=== PATIENT | female | born 1935 | race Caucasian/White ===

== ENCOUNTER 2022-11-14 14:00 | Outpatient (REF) | payer MEDICARE, SELFPAY ==
--- NOTE | ~2022-11-14 | XR_ITS ---
EXAMINATION: XR KNEE, RIGHT CLINICAL INFORMATION: Right knee pain. COMPARISON: 09/29/2022 and 11/10/2021. TECHNIQUE: AP and lateral views of the right knee. FINDINGS: There is no evidence of acute fracture or dislocation of the right knee. No right knee effusion is seen. There is some marginal spurring seen about the medial joint space compartment without significant narrowing of the joint space identified. There appears to be some mild narrowing of the patellofemoral joint with some superior spurring identified. Prominent vascular calcifications present. XR/XR knee RT 2V IMPRESSION: Mild degenerative change of the patellofemoral joint and medial joint space compartment of the right knee. No acute fracture, dislocation, or effusion identified.
== END 2022-11-14 14:01 | disposition home or self-care (01) ==
LOC: HO.HOSX 14:00
PROVIDERS: Visit Provider Orthopaedic Surgery
DX: M17.11 Unilateral primary osteoarthritis, right knee (principal); M25.562 Pain in left knee
CPT/HCPCS: 73560; 99212

== ENCOUNTER 2023-04-24 10:54 | Outpatient (REF) | payer MEDICARE, SELFPAY ==
--- NOTE | ~2023-04-24 | XR_ITS ---
EXAMINATION: XR PELVIS AP XR LUMBAR SPINE XR KNEE, LEFT CLINICAL INFORMATION: Pain. COMPARISON: September 29, [address] abdomen of May 28, 2019. TECHNIQUE: AP pelvis, 3 view lumbar spine, AP and lateral views of the left knee. FINDINGS: LUMBAR SPINE: There is diffuse osteopenia present. There is a grade 1 spondylolisthesis L4-L5 with bilateral facet arthropathy L4-S1. There is question of spondylolysis with L5 pars defects. Since study of May 28, 2019 there have been superior and inferior endplate fractures of L3 with approximately 40% loss of height centrally. There appears to be a stable inferior endplate fracture of L2. There has been progression in compression fracture of L1 which on prior CT scan had minimal loss of height with superior endplate compression fracture. There is now approximately 50% loss of height anteriorly. There is a stable compression fracture of T12 as well as degenerative spurring and fusion within the lower lumbar spine. LEFT KNEE: Patient is status post left total knee arthroplasty. Prosthetic components appear in good position without evidence of hardware failure. Osteopenia is present. No significant effusion is appreciated. PELVIS: There is no evidence of acute fracture or diastasis of the pelvis. Hip joints appear maintained. Calcification about the greater trochanter is seen bilaterally. There is some sclerosis involving the sacroiliac joints with spurring. Prominent vascular calcifications are present. XR/XR lumbar spine 2-3V IMPRESSION: Diffuse osteopenia. Status post left knee arthroplasty without significant abnormality appreciated. Grade 1 spondylolisthesis L4-L5 with bilateral facet arthropathy L4-S1. Fractures of the L1 and L3 vertebral bodies since previous CT scan of May 28, 2019 of uncertain chronicity. Bilateral calcific trochanteritis of the hips.
--- NOTE | ~2023-04-24 | XR_ITS ---
EXAMINATION: XR PELVIS AP XR LUMBAR SPINE XR KNEE, LEFT CLINICAL INFORMATION: Pain. COMPARISON: September 29, [address] abdomen of May 28, 2019. TECHNIQUE: AP pelvis, 3 view lumbar spine, AP and lateral views of the left knee. FINDINGS: LUMBAR SPINE: There is diffuse osteopenia present. There is a grade 1 spondylolisthesis L4-L5 with bilateral facet arthropathy L4-S1. There is question of spondylolysis with L5 pars defects. Since study of May 28, 2019 there have been superior and inferior endplate fractures of L3 with approximately 40% loss of height centrally. There appears to be a stable inferior endplate fracture of L2. There has been progression in compression fracture of L1 which on prior CT scan had minimal loss of height with superior endplate compression fracture. There is now approximately 50% loss of height anteriorly. There is a stable compression fracture of T12 as well as degenerative spurring and fusion within the lower lumbar spine. LEFT KNEE: Patient is status post left total knee arthroplasty. Prosthetic components appear in good position without evidence of hardware failure. Osteopenia is present. No significant effusion is appreciated. PELVIS: There is no evidence of acute fracture or diastasis of the pelvis. Hip joints appear maintained. Calcification about the greater trochanter is seen bilaterally. There is some sclerosis involving the sacroiliac joints with spurring. Prominent vascular calcifications are present. XR/XR pelvis 1-2V IMPRESSION: Diffuse osteopenia. Status post left knee arthroplasty without significant abnormality appreciated. Grade 1 spondylolisthesis L4-L5 with bilateral facet arthropathy L4-S1. Fractures of the L1 and L3 vertebral bodies since previous CT scan of May 28, 2019 of uncertain chronicity. Bilateral calcific trochanteritis of the hips.
--- NOTE | ~2023-04-24 | XR_ITS ---
EXAMINATION: XR PELVIS AP XR LUMBAR SPINE XR KNEE, LEFT CLINICAL INFORMATION: Pain. COMPARISON: September 29, [address] abdomen of May 28, 2019. TECHNIQUE: AP pelvis, 3 view lumbar spine, AP and lateral views of the left knee. FINDINGS: LUMBAR SPINE: There is diffuse osteopenia present. There is a grade 1 spondylolisthesis L4-L5 with bilateral facet arthropathy L4-S1. There is question of spondylolysis with L5 pars defects. Since study of May 28, 2019 there have been superior and inferior endplate fractures of L3 with approximately 40% loss of height centrally. There appears to be a stable inferior endplate fracture of L2. There has been progression in compression fracture of L1 which on prior CT scan had minimal loss of height with superior endplate compression fracture. There is now approximately 50% loss of height anteriorly. There is a stable compression fracture of T12 as well as degenerative spurring and fusion within the lower lumbar spine. LEFT KNEE: Patient is status post left total knee arthroplasty. Prosthetic components appear in good position without evidence of hardware failure. Osteopenia is present. No significant effusion is appreciated. PELVIS: There is no evidence of acute fracture or diastasis of the pelvis. Hip joints appear maintained. Calcification about the greater trochanter is seen bilaterally. There is some sclerosis involving the sacroiliac joints with spurring. Prominent vascular calcifications are present. XR/XR knee LT 3V IMPRESSION: Diffuse osteopenia. Status post left knee arthroplasty without significant abnormality appreciated. Grade 1 spondylolisthesis L4-L5 with bilateral facet arthropathy L4-S1. Fractures of the L1 and L3 vertebral bodies since previous CT scan of May 28, 2019 of uncertain chronicity. Bilateral calcific trochanteritis of the hips.
== END 2023-04-24 10:55 | disposition home or self-care (01) ==
LOC: HO.HOSX 10:54
PROVIDERS: PCP Internal Medicine; Visit Provider Orthopaedic Surgery
DX: M25.562 Pain in left knee (principal); M54.50 Low back pain, unspecified; M25.551 Pain in right hip; M25.552 Pain in left hip
CPT/HCPCS: 72100; 72170; 73562; 99212

== ENCOUNTER 2023-04-24 10:54 | Outpatient (AMB) | payer MEDICARE, SELFPAY ==
--- NOTE | 2023-04-24 11:17 | MHC.OFFVIS ---
Intake Vital Signs 04/24/23 11:19 Height 5 ft 1 in Weight 126 lb BMI 23.8 Intake Visit Reasons: discuss RT TKA Intake Note: Juhi is an 87 year old female who presents today to re-establish care with Dr. Hernandez. The patient is most concerned about progressively worsening low back pain which radiates into both of her hips and legs. The patient states that she has fallen on several occasions over the last few months. The most recent fall was when she tripped over her own foot while in her bathroom. Since that time her back pain has gotten worse. She has tried Tylenol which gives her minimal relief. She also reports intermittent weakness in her legs. She has done physical therapy exercises which aggravated her pain. Allergies metoclopramide [From Reglan] Allergy (Verified 11/14/22 14:13) Hallucinations [facility] Medical History Pacemaker Surgical History Heart valve replaced (06/14/22) History of left knee replacement (10/03/21) Physical Exam Vital Signs: BMI result Body Mass Index 23.8 Const Other: Well-nourished well-developed very friendly female awake alert and oriented x3 in no acute distress Back/Spine/Pelvis Other: Low back examination shows midline and bilateral paraspinal muscle tenderness, pain with range of motion, no overlying skin lesions Extrem Other: Bilateral hip examination shows minimal discomfort with range of motion, mild tenderness over her bilateral bursae Right knee examination shows a minimal effusion, palpable crepitus with range of motion, pain with range of motion, no instability Results Reviewed Results Reviewed: X-rays of the patient's lumbar spine taken today show possible acute fractures of her L1 and L3 vertebral bodies X-rays of the patient's right knee shows joint space narrowing, subchondral sclerosis most significant in the patellofemoral joint, no acute bony abnormalities X-rays of the patient's bilateral hips taken today show mild diffuse joint space narrowing, no acute bony abnormalities Assessment & Plan Assessment & Plan (1) Left knee pain: Code(s): M25.562 - Pain in left knee (2) Low back pain: Code(s): M54.50 - Low back pain, unspecified Plan Ms. Samayoa presents with progressively worsening low back pain possibly due to acute compression fractures of L1 and L3. Patient is not able to get an MRI because she has a pacemaker. Thus, I will send her for a CT scan of her lumbar spine for further evaluation. I will contact her by phone once the scan results are available. She will contact me prior to that time should her symptoms worsen in any way. The patient also has intermittent right knee pain due to degenerative joint disease. At this point her knee pain is tolerable to her. Her bilateral hip discomfort is most likely due to her lumbar spine pathology. Feel free to call me at any time should questions regarding her orthopedic management arise. I spent 22 minutes in reviewing the patient's records and imaging studies, seeing the patient and documenting in the medical record. Orders: Orders XR lumbar spine 2-3V Today M54.50 - Low back pain, unspecified XR knee LT 3V Today M25.562 - Pain in left knee XR pelvis 1-2V Today M25.551 - Pain in right hip, M25.552 - Pain in left hip CT lumbar spine wo IV con Today M54.50 - Low back pain, unspecified Coding Level of Care Code Est Pt Level 2 (61850) Diagnoses Left knee pain M25.562 Low back pain M54.50
[2023-04-24 11:19] VITALS: BMI 23.8
== END 2023-04-24 12:19 | disposition home or self-care (01) ==
PROVIDERS: PCP Internal Medicine; Visit Provider Orthopaedic Surgery
DX: M25.562 Pain in left knee (principal); M54.50 Low back pain, unspecified
CPT/HCPCS: 99212

== ENCOUNTER 2023-05-07 10:00 | Outpatient (RCR) | payer MEDICARE, SELFPAY | END 2023-06-01 07:57 | disposition home or self-care (01) | LOC: HO.PT 10:00 | PROVIDERS: PCP Internal Medicine; Visit Provider Internal Medicine | DX: M54.9 Dorsalgia, unspecified (principal) | CPT/HCPCS: 97110; 97112; 97140; 97162; 97530 ==

== ENCOUNTER 2024-10-15 07:33 | Outpatient (REF) | payer MEDICARE, SELFPAY ==
--- NOTE | ~2024-10-15 | XR_ITS ---
EXAMINATION: XR KNEE 3 VIEWS LEFT HISTORY: left knee pain COMPARISON: Comparison is made with the prior examination dated 04/24/2023. FINDINGS: AP, lateral, and sunrise patellar views of the left knee are submitted. The patient is again noted to be status post left total knee arthroplasty. The orthopedic elements are in anatomic alignment. There is no radiographic evidence of loosening. There is no fracture or dislocation. There is no joint effusion. The soft tissues are unremarkable. XR/XR knee LT 3V IMPRESSION: Status post left total knee arthroplasty. Electronically signed by: Alejandro Alejandro MD 10/15/2024 03:31 PM EDT
--- OUTSIDE RECORDS SUMMARY | 2024-10-15 07:35 | XMS_ITS ---
Author Organization [facility] Address [address] [place] [address] Care Team Providers Care Manager Product Management Name Role Phone Mark FRENCH, Oral Primary Care Provider Tequila Tran Unavailable [phone] Allergies Allergen (clinical drug ingredient) Drug/Non Drug Allergy documented on EMR Reaction Allergy Type Onset Date Status metoclopramide Metoclopramide HCl Unknown Drug Allergy Active REASON FOR VISIT At Risk Footcare, Painful Nail(s) aggravated by shoes and causing difficulty standing/walking. Medications Medication SIG (Take, Route, Frequency, Duration) Notes Start Date End Date Status hydroCHLOROthiazide Not-Taking baby asprin Not-Taki ng Losartan Potassium 25 MG 1 tablet Orally Once a day for 30 day(s) Not-Taking Vitamin D3 - as directed Activ e Furosemide 20 MG 1 tablet Orally Once a day for 30 day(s) Not-Taking Iron Active Simvastatin 10 MG 1 tablet in the evening Orally Once a day for 30 day(s) Active Vitamin B-12 5000 MCG as directed Orally Active Losartan Potassium 100 MG 1 tablet Orall y Once a day for 30 days Active NexIUM 40 MG 1 capsule Orally Once a day for 30 day(s) Active hydroCHLOROthiazide 12.5 MG 1 tablet in the morning Orally Once a day Active Airborne - as directed Orally Active Calcium 600 MG 1 tablet with meals Orally Twice a day for 30 day(s) Active Social History Tobacco Use: Social History Observation Description Date Details (start date - stop date) Never Smoker NA - NA Alcohol Screen Question Answer Notes Did you have a drink containing alcohol in the p ast year? No Points 0 Interpretation Negative Tobacco use other than smoking: Question Answer Notes Are you an other tobacco user? No Tobacco Control (Standard) Question Answer Notes Tobacco use: Nonsmoker Problems Problem Type SNOMED Code ICD Code Onset Dates Problem Status W/U Status Risk Notes Problem Bilateral atherosclerosis of arteries of lower limbs (disorder) ([id number] ) Atherosclerosis of [place]am[place] artery of both lower extremities, with unspecified presence of clinical manifestation (I70.203) Active confirmed Q7(A), Q8(2B), Q9(1B,2 C) Vital Signs Height 5 ft 1 in in 05/27/2024 Weight 127 lbs 05/27/2024 BMI 23.99 kg/m2 05/27/2024 Blood pressure systolic 119 mm Hg 05/27/19 25 Blood pressure diastolic 52 mm Hg 025 Procedures Procedure Date Ordered Date Performed Result Body Sit e 21148-LGWSKUC NAIL, 6 OR MORE 05/27/2024 N/A 46588-UMVJ SKIN LESIONS, OVER 4 05/27/2024 N/A Encounters Encounter Location Date Provider Diagnosis [facility] [address] [address] 05/27/2024 Tequila Shin Atherosclerosis of [place]am[place] artery of both lower extremities, with unspecified presence of clinical manifestation I70.203 ; Tinea unguium B35.1 ; Pain in right toe(s) M79.674 and Pain in left toe(s) M79.675 Assessments Encounter Date Diagnosis (ICD Code) Assessment Notes Treatment Notes Treatment Clinical Notes Section Notes 05/27/2024 Atherosclerosis of [place]am[place] artery of both lower extremities, with unspecified presence of clinical manifestation (ICD-10 - I70.203) Q7(A), Q8(2B), Q9(1B,2C) 05/27/2024 Tinea unguium (ICD-10 - B35.1) 05/27/2024 Pain in right toe(s) (ICD-10 - M79.674) 05/27/2024 Pain in left toe(s) (ICD-10 - M79.675) Plan Of Treatment Pending Test Test Name Order Date 82752-BUSEVRH NAIL, 6 OR MORE 05/27/2024 44662-TXRF SKIN LESIONS, OVER 4 05/27/19 25 Next Appt Details Follow Up: 3 Months, Reason: Procedure Notes * Category Sub-Category Detail Notes Debride Nail 6-10 Nail debridement Due to the cl inical pathology outlined in the exam findings, performance of this nail treatment is medically necessary as its management by an unskilled/untrained nonprofessional would put this patients foot and overall health at risk. Therefore, debridement to affected nail(s), as described in exam ( TA, T1, T2, T3, T4, T5, T6, T7, T8, T9, ), was performed exclusively by the physician of record to reduce/remove overall nail length, girth, thickness, subungual debris, and necrotic tissue, by manual and/or electrical means through the use of a nail nipper and/or dremel-type watch parts grinder, to a more viable healthy nail plate or bed tissue 6-10 nails in total. Silver nitrate was used for any petechial bleeding as necessary. Definitive antifungal treatment options, both pharmaceutical and surgical, have been reviewed and discussed with the patient. The patient solely prefers the use of intermittent/as needed professional debridement services for their nail condition and understands the need for additional periodic treatments to maintain effectiveness in symptomatic relief - 38774 Keratoma Treatment Parring or Cutting o f Benign Hyperkeratotic Lesion(s) (-56) 2-4 Lesions - Due to the at risk nature of the patients medical condition as documented in the exam findings, performance of this keratoderma treatment is medically necessary as its management by an unskilled/untrained nonprofessional would put this patients foot and overall health at risk. Therefore, the benign hyperkeratotic lesions, (6 ) in total, locations as stated and described in the exam ( Plantar, Heel(s), B/L , SUB MTH (s), 1, B/L , Midfoot, B/L), were pared, and/or cut utilizing a sterile 15 blade, tissue nippers, and/or power dremel instrumentation by the physician of record - 05788, Q8 Progress Notes * Juhi SAMAYOA MDOB:1935 (88 yo F)Acc No.[id number]:05/27/2024 Progress Note Patient:?NAZ Juhi Bloom Provider:?Tequila Shin DPM :1935???Age:88 Y???Sex:Female D ate:05/27/2024 Address:[address], [place], [place] Pcp:Oral Flores MD Subjective: * Chief Complaints: * ???At Risk FootcarePainful N ail(s) aggravated by shoes and causing difficulty standing/walking. * HPI: ???At Risk footcare:?Pt States Last PCP Visit:?Date?05/12/2024 * ROS:?General/Constitutional:?Nausea?denies.?Vomiting?denies.?Hunger Thirst?denies.?Loss appetite?denies.?Chills?denies.?Fatigue?denies.?Fever?denies.?Night Sweats?denies.?Unexplained weight loss?denies.?Unexplained weight gain?denies.?HEENTM:?Dentures?denies.?Dizziness?denies.?Glasses/contacts?admits.?Retinopathy?de nies.?Blurred/double vision?denies.?TMJ?denies.?Discharge/drainage?denies.?Implants?denies.?Sore throat?denies.?Dental implants?denies.?Hard of hearing ?denies.?Difficulty chewing/swallowing/speaking?denies.?Nose bleeds?denies.?Sore mouth?denies.?Respiratory:?On Oxygen?denies.?Pneumonia/pleurisy?denies.?Bronchitis?denies.?Emphysema?denies.?C oughing?denies.?Cough blood?denies.?Shortness of breath?denies.?Wheezing?denies.?Cardiovascular:?Pacemaker?denies.?MVP?denies.?WPW?denies.?CHF?denies.?Heart attack?denies.?Septal defect?denies.?Rapid beat?denies.?Chest pain ?denies.?Atrial Fib.?denies.?Murmur/Palpitations?admits.?Gastrointestinal:?Hemorrhoids?denies.?Stomach/Abdominal pain?denies.?Dark blood stool?denies.?Irritable bowel ?denies.?Constipation?denies.?Diarrhea?denies.?Hematology:?Swelling?admits.?Clots?denies.?Varicose Veins?admits.?Bruising?admits.?Bleeding problem?denies.?Genitourinary:?Blood urine?denies.?Frequent/Painfu/urination/bladder control?denies.?Kidney stones?denies.?Infection (UTI)?denies.?Nephropathy?admits.?sex trans dis (STD)?denies.?Prostate?denies.?Musculoskeletal:?Hammertoes?denies.?Bunions?denies.?Back Pain?denies.?Muscle Cramps/ Resting?admits.?Muscle cramps / walking?admits.?Generalized aches and pains?denies.?Weakness?denies.?Integ.:?[place]?denies.?Scars?denies.?Corns/calluses?denies.?Ingrown nails?denies.?Painful nails?denies.?Open Sores?denies.?Rashes?denies.?Neurologic:?Difficulty sleeping?denies.?Brain disorder?denies.?Numbness?admits.?Balance trouble?denies.?Confusion?denies.?Fainting/blackouts?denies.?Tingling?denies.?Tr emors?denies.? * Medical History:? * Surgical History:?biopsy on face spot 04/19/20TVARS 03/02/21left knee replacement 10/03/21pacemaker 06/15/22 * Hospitalization/Major Diagno stic Procedure:?[facility], Aortic valve [facility]- fell 02/2023 * Family History:?Mother: dece ased, diabetes, heart attack, high blood pressure, cancer, foot problems, diagnosed with Diabetic - NIDDM.?Father: , heart attack, diagnosed with Family history of arthritis.?Siblings: diabetes, stroke, heart attack.?Spouse: .? * Social History:?Tobacco Use:?Tobacco use other than smoking?Are you an other tobacco user??No ?Tobacco Control (Standard)?Tobacco use:?Nonsmoker ???Drugs/Alcohol:?Drugs?Have you used drugs other than those for medical reasons in the past 12 months??No ?Alcohol Screen?Did you have a drink containing alcohol in the past year??No ?Points?0 ?Interpretation?Negative ???Miscellaneous:?Caffeine: yes, frequency:. ?Children: yes, 3. ?Exercise: yes, exercise. ?Marital status: . ?Occupation: Retired. * Medications:?TakingAirborne - Tablet Chewable as directed Orally Calcium 600 MG Tablet 1 tablet with meals Orally Twice a day hydroCHLOROthiazide 12.5 MG Tablet 1 tablet in the morning Orally Once a day Iron Losartan Potassium 100 MG Tablet 1 tablet Orally Once a day NexIUM 40 MG Capsule Delayed Release 1 capsule Orally Once a day Simvastatin 10 MG Tablet 1 tablet in the evening Orally Once a day Vitamin B-12 5000 MCG Lozenge as directed Orally Vitamin D3 - Liquid as directed Taking Airborne - Tablet Chewable as directed Orally Taking Calcium 600 MG Tablet 1 tablet with meals Orally Twice a day Taking hydroCHLOROthiazide 12.5 MG Tablet 1 tablet in the morning Orally Once a day Taking Iron Taking Losartan Potassium 100 MG Tablet 1 tablet Orally Once a day Taking NexIUM 40 MG Capsule Delayed Release 1 capsule Orally Once a day Taking Simvastatin 10 MG Tablet 1 tablet in the evening Orally Once a day Taking Vitamin B-12 5000 MCG Lozenge as directed Orally Taking Vitamin D3 - Liquid as directed Not-Taking/PRNFurosemide 20 MG Tablet 1 tablet Orally Once a day hydroCHLOROthiazide baby asprin Losartan Potassium 25 MG Tablet 1 tablet Orally Once a day Medication List reviewed and reconciled with the patientNot-Taking/PRN Furosemide 20 MG Tablet 1 tablet Orally Once a day Not-Taking/PRN hydroCHLOROthiazide Not-Taking/PRN baby asprin Not-Taking/PRN Losartan Potassium 25 MG Tablet 1 tablet Orally Once a day Medication List reviewed and reconciled with the patient * Allergies:?Metoclopramide HC lyes[Allergies Verified] Objective: * Vitals:?Ht: 5 ft 1 in, Wt: 1 27, BMI: 23.99, Shoe size: 7.5W, BP: 119/52 mm Hg, Wt-k.61 kg. * Examination: ???Vascular: ?DP PULSES (B):? 0/4, B/L.?PT PULSES (B):? 0/4, B/L.?CAPILLARY FILL TIME:? delayed, all digits, B/L.?TROPHIC CONDITION-TEXTURE/ELASTICITY/TURGOR/HAIR GROWTH (B):? decreased, fragile, thin, shiny skin, with sparse to absent hair growth, B/L.?TEMPERTURE GRADIENT (C):? decreased, cool to cool, proximal to distal, B/L.?PIGMENTATION:?pale, B/L.?EDEMA (C):?absent, B/L.?CLAUDICATION (C):?denies, B/L.?REST PAIN:?denies, B/L.?PARESTHESIA (C):?absent, B/L.?BURNING (C):?absent, B/L.?Nails: ?NAILS are:?Elongated, overgrown, dystrophic, lytic, greater than 3mm thick, discolored and friable with crumbly malodorous subungual debris, with pain on palpation, TA, T1, T2, T3, T4, T5, T6, T7, T8, T9.?Dermatologic: ?SKIN FINDINGS:?Skin exam reveals Keratotic lesion(s) located at?Plantar, Heel(s), B/L , SUB MTH (s), 1, B/L , Midfoot, B/L.?Orthopedic: ?MUSCLE STRENGTH:?5/5 all groups in a symmetrical fashion, B/L.?Neurological: ?SENSORY:?Neurological exam reveals intact sensorium, pain sensation normal, vibration sensation intact, pinprick sensation is normal in the lower extremities, Pt denies, anesthesia, burning, paresthesia, tingling, B/L.?General Examination: ?GENERAL APPEARANCE:?Reveals a pleasant, alert, well nourished, well- developed, well hydrated individual, who demonstrates proper attention to hygiene/body habitus, and is in no acute distress, Pt serves as own historian for office visit today.?ORIENTED:?person, place, and time.? Assessment: * Assessment: 1.?Atherosclerosis of [place] artery of both lower extremities, with unspecified presence of clinical manifestation - I70.203 (Primary)???Notes :Q7(A), Q8(2B), Q9(1B,2C)???2.?Tinea unguium - B35.1???3.?Pain in right toe(s) - M79.674???4.?Pain in left toe(s) - M79.675??? Plan: * Treatment: 2.?Tinea unguium?Procedure: [id number]-[id number] NAIL, 6 OR MORE * Procedures:?Debride Nail 6-10:?Nail debridement?Due to the clinical pathology outlined in the exam findings, performance of this nail treatment is medically necessary as its management by an unskilled/untrained nonprofessional would put this patients foot and overall health at risk. Therefore, debridement to affected nail(s), as described in exam ( TA, T1, T2, T3, T4, T5, T6, T7, T8, T9, ), was performed exclusively by the physician of record to reduce/remove overall nail length, girth, thickness, subungual debris, and necrotic tissue, by manual and/or electrical means through the use of a nail nipper and/or dremel-type watch parts grinder, to a more viable healthy nail plate or bed tissue 6- 10 nails in total. Silver nitrate was used for any petechial bleeding as necessary. Definitive antifungal treatment options, both pharmaceutical and surgical, have been reviewed and discussed with the patient. The patient solely prefers the use of intermittent/as needed professional debridement services for their nail condition and understands the need for additional periodic treatments to maintain effectiveness in symptomatic relief - 39689.?Keratoma Treatment:?Parring or Cutting of Benign Hyperkeratotic Lesion(s)?(-56) 2-4 Lesions - Due to the at risk nature of the patients medical condition as documented in the exam findings, performance of this keratoderma treatment is medically necessary as its management by an unskilled/untrained nonprofessional would put this patients foot and overall health at risk. Therefore, the benign hyperkeratotic lesions, (6 ) in total, locations as stated and described in the exam ( ?Plantar, Heel(s), B/L , SUB MTH (s), 1, B/L , Midfoot, B/L), were pared, and/or cut utilizing a sterile 15 blade, tissue nippers, and/or power dremel instrumentation by the physician of record - 12239, Q8.? * Procedure Codes:?08032 DEBRI DE NAIL, 6 OR MORE, Modifiers: XS 69695 TRIM SKIN LESIONS, OVER 4, Modifiers: XS , Q8 * Follow Up:?3 Months * Images: * Sign off status: Completed true * Provider:?Tequila Shin DPM Date:?0 05/27/2024 Generated for Nicanor otto/Vianey/William on:?10/15/2024 07:35 AM EDT History and Physical Notes * HPI (History of Present Illness) Category Sub-Category Detail Notes Category Not es At Risk footcare Pt States Last PCP Visit: Date: 4 Examination Category Sub-Category Detail Notes Category Not es Neurological SENSORY: Neurological exa m reveals intact sensorium, pain sensation normal, vibration sensation intact, pinprick sensation is normal in the lower extremities, Pt denies, anesthesia, burning, paresthesia, tingling, B/L Dermatologic SKIN FINDINGS: Skin exam reveal s Keratotic lesion(s) located at Plantar, Heel(s), B/L , SUB MTH (s), 1, B/L , Midfoot, B/L Orthopedic MUSCLE STRENGTH: 5/5 all groups in a symmetrical fashion, B/L General Examination GENERAL APPEARANCE: Reveals a pleasant, alert, well nourished, well-developed, well hydrated individual, who demonstrates proper attention to hygiene/body habitus, and is in no acute distress, Pt serves as own historian for office visit today ORIENTED: person, place, and t nnamdi Vascular DP PULSES (B): 0/4, B/L PT PULSES (B): 0/4, B/L CAPILLARY FILL TIME: delayed, all digits , B/L TEMPERTURE GRADIENT (C): decreased, cool to cool, proximal to distal, B/L TROPHIC CONDITION-TEXTURE/ELASTICITY/TURGOR/HAIR GROWTH (B): decreased, fragile, thin, shiny skin, wi th sparse to absent hair growth, B/L EDEMA (C): absent, B/L CLAUDICATION (C): denies, B/L REST PAIN: denies, B/L PIGMENTATION: pale, B/L PARESTHESIA (C): absent, B/L BURNING (C): absent, B/L Nails NAILS are: Elongated, overg rown, dystrophic, lytic, greater than 3mm thick, discolored and friable with crumbly malodorous subungual debris, with pain on palpation, TA, T1, T2, T3, T4, T5, T6, T7, T8, T9
== END 2024-10-15 07:34 | disposition home or self-care (01) ==
LOC: HO.HOSX 07:33
PROVIDERS: Visit Provider Orthopaedic Surgery
DX: M25.562 Pain in left knee (principal)
CPT/HCPCS: 73562; 99212

== ENCOUNTER 2024-10-15 14:38 | Outpatient (AMB) | payer MEDICARE, SELFPAY ==
--- NOTE | 2024-10-15 14:50 | A.OFFVIS_ITS ---
Vital Signs 10/15/24 14:51 Height 5 ft 1 in Weight 126 lb BMI 23.8 Intake Visit Reasons: OV- Left knee pain Intake Note: Juhi is an 89 year old female who presents today for follow of her left knee pain. Patient reports she took a fall last year and her left knee has been bothering her since. Patient is taking OTC pain meds PRN with mild relief of pain. She denies any fevers or chills. She denies any locking or giving way. She did undergo left total knee replacement surgery in September of 2021. Allergies metoclopramide [From Reglan] Allergy (Verified 10/15/24 14:52) Hallucinations Medication List - Last Reconciled 10/15/24 by Adrian Hernandez MD amlodipine 5 mg PO BEDTIME cholecalciferol (vitamin D3) 50 mcg PO DAILY esomeprazole magnesium (Nexium) 20 mg PO DAILY ferrous sulfate 325 mg PO DAILY hydrochlorothiazide 12.5 mg PO QAM losartan 100 mg PO DAILY mecobalamin (vitamin B12) 1,000 mcg PO DAILY simvastatin mg PO PENDING SALE TO [facility] Medical History Pacemaker Surgical History Heart valve replaced (06/14/22) History of left knee replacement (10/03/21) Physical Exam Vital Signs: BMI result Body Mass Index 23.8 Const Other: Well-nourished well-developed very friendly female awake alert and oriented x3 in no acute distress Extrem Other: Left knee examination shows that the surgical incision is well healed, no erythema, full active extension and flexion to 120 degrees, her patella tracks well, no instability Assessment & Plan Assessment & Plan (1) Left knee pain: Code(s): M25.562 - Pain in left knee Category: Medical Plan Ms. Samayoa presents with continued discomfort in her left knee after undergoing left total knee replacement surgery in September of 2021 of unclear etiology. The patient does not have any clinical evidence of infection or damage to her total knee arthroplasty. The patient may be a candidate for a nerve stimulation procedure. Thus, I will arrange for her to have an evaluation in our pain management Department with Dr. Almaraz. She will follow-up as instructed. She will contact me prior to her annual follow-up appointment should her symptoms worsen in any way. Feel free to call me at any time should questions regarding her orthopedic management arise. I spent 20 minutes in reviewing the patient's records and imaging studies, seeing the patient and documenting in the medical record. Orders: Referrals Pain Management Referral M25.562 - Pain in left knee Medications: New amoxicillin Take four caps (2,000 mg) one hour before any dental work. 2,000 mg (4 x 500 mg) PO ONCE 20 caps 3RF Coding Level of Care Code Est Pt Level 3 (24229) Complex EM visit Add On G2211 Diagnoses Left knee pain M25.562
[2024-10-15 14:51] VITALS: BMI 23.8
== END 2024-10-15 15:21 | disposition home or self-care (01) ==
LOC: HO.HOS 14:38
PROVIDERS: PCP Internal Medicine; Visit Provider Orthopaedic Surgery
DX: M25.562 Pain in left knee (principal); Z96.652 Presence of left artificial knee joint
CPT/HCPCS: 99213; G2211

== ENCOUNTER → 2024-10-15 14:42 | Outpatient (BNV) | payer MEDICARE, SELFPAY | PROVIDERS: Visit Provider Radiology Diagnostic Radiology | DX: M25.562 Pain in left knee (principal); Z96.652 Presence of left artificial knee joint | CPT/HCPCS: 73562 ==